=== PATIENT | male | born 1995 | race Caucasian/White ===

== ENCOUNTER 2019-07-20 22:04 | Inpatient (IN) | payer SELFPAY ==
[~2019-07-20] VITALS: Ht 170.1 cm; Wt 92.1 kg
[2019-07-20 22:07] VITALS: BP 144/84
[2019-07-20 22:33] LABS: BASO # 0.1 10*3/uL (0.0-0.1); BASO % 0.4 % (0.0-1.0); EOS # 0.2 10*3/uL (0.0-0.4); EOS % 1.2 % (1.0-4.0); HEMATOCRIT 46.3 % (42.0-52.0); HEMOGLOBIN 16.1 g/dl (14.0-18.0); LYMPH # 3.2 10*3/uL (1.3-4.4); LYMPH % 21.1 % (27.0-41.0); MEAN CELL VOLUME 89.6 fl (80.0-94.0); MEAN CORPUSCULAR HGB 31.1 pg (27.0-31.0); MEAN CORPUSCULAR HGB CONC 34.8 g/dl (33.0-37.0); MEAN PLATELET VOLUME 9.8 fl (9.6-12.3); MONO # 1.4 10*3/uL (0.1-1.0); MONO % 9.1 % (3.0-9.0); NEUT # 10.2 10*3/uL (2.3-7.9); PLATELET COUNT AUTOMATED 294 10*3/uL (130-400); RED BLOOD COUNT 5.17 10*6/uL (4.50-5.90); RED CELL DISTRI WIDTH 11.7 % (0-14.5)
[2019-07-20 22:49] LABS: ALBUMIN 4.1 gm/dl (3.1-4.5); ALKALINE PHOSPHATASE 103 U/L (45-117); BUN 12 mg/dl (7-24); CHLORIDE 105 mmol/L (98-107); CREATININE 1.05 mg/dL (0.70-1.30); POTASSIUM 3.6 mmol/L (3.5-5.1); SGOT/AST 27 IU/L (3-35); SGPT/ALT 33 U/L (12-78); SODIUM 138 mmol/L (136-145); TOTAL PROTEIN 7.7 gm/dL (6.4-8.2)
--- NOTE | 2019-07-20 23:02 | NUR ---
PRATIK AYALA AT BEDSIDE TO DISCUSS PLAN OF CARE WITH PT.PT DECLINES TO STAY.PT ADVISED BY PA OF ANY AND ALL RISKS OF LEAVING AGAINST MEDICAL ADVICE.PT VERBALIZED UNDERSTANDING.
[2019-07-20] MEDS ORDERED: SEPTDS PO (23:04)
[2019-07-20] MEDS ORDERED: CEPHALEXIN500 M1 PO (23:04)
--- NOTE | 2019-07-20 23:10 | NUR ---
PT GIRLFRIEND TO NURSES STATION,SPOKE WITH PRATIK AYALA,STATES PT IS WILLING TO BE ADMITTED.
--- NOTE | 2019-07-20 23:54 | NUR ---
PHOTO TAKEN OF LEFT ARM CELLULITIS.PER RESIDNET, AREA OF REDNESS OUTLINED WITH MARKER.
[2019-07-20 23:56] VITALS: BP 152/76
[2019-07-21 00:05] LABS: INTERNATIONAL NORM RATIO 0.9 (2.0-3.5)
[2019-07-21 02:00] VITALS: BP 154/92
[2019-07-21 06:25] LABS: BASO # 0.1 10*3/uL (0.0-0.1); BASO % 0.5 % (0.0-1.0); EOS # 0.2 10*3/uL (0.0-0.4); EOS % 1.4 % (1.0-4.0); HEMATOCRIT 43.5 % (42.0-52.0); HEMOGLOBIN 15.1 g/dl (14.0-18.0); LYMPH # 2.2 10*3/uL (1.3-4.4); LYMPH % 17.6 % (27.0-41.0); MEAN CELL VOLUME 90.2 fl (80.0-94.0); MEAN CORPUSCULAR HGB 31.3 pg (27.0-31.0); MEAN CORPUSCULAR HGB CONC 34.7 g/dl (33.0-37.0); MEAN PLATELET VOLUME 10.3 fl (9.6-12.3); MONO # 1.3 10*3/uL (0.1-1.0); MONO % 10.1 % (3.0-9.0); NEUT # 8.8 10*3/uL (2.3-7.9); NEUT % 70.1 % (47.0-73.0); PLATELET COUNT AUTOMATED 279 10*3/uL (130-400); RED BLOOD COUNT 4.82 10*6/uL (4.50-5.90); RED CELL DISTRI WIDTH 11.9 % (0-14.5); WHITE BLOOD COUNT 12.5 10*3/uL (4.8-10.8)
--- NOTE | 2019-07-21 06:41 | NUR ---
DR. CARLISLE NOTIFIED OF CONSULT. WILL SEE PATIENT THIS AM.PATIENT MAY ORDER BREAKFAST, BUT HOLD TRAY UNTIL HE SEES PATIENT.
[2019-07-21 07:06] LABS: ALBUMIN 3.3 gm/dl (3.1-4.5); ALKALINE PHOSPHATASE 95 U/L (45-117); BUN 12 mg/dl (7-24); CHLORIDE 109 mmol/L (98-107); CHOLESTEROL 145 mg/dL (<200); CREATININE 0.95 mg/dL (0.70-1.30); HDL CHOLESTEROL 28 mg/dl (40-60); LDL CHOLESTEROL 96 mg/dL (9-159); PHOSPHOROUS 3.6 mg/dL (2.5-4.9); POTASSIUM 3.6 mmol/L (3.5-5.1); SGOT/AST 23 IU/L (3-35); SGPT/ALT 32 U/L (12-78); SODIUM 140 mmol/L (136-145); TOTAL PROTEIN 6.6 gm/dL (6.4-8.2); TRIGLYCERIDES 107 mg/dl (<150); VLDL CHOLESTEROL 21 mg/dL (6-40)
[2019-07-21 08:00] VITALS: BP 105/64
[2019-07-21 12:00] VITALS: BP 130/83
--- NOTE | 2019-07-21 12:10 | NUR ---
Dr. Sow in and removed scab from abscess and small amount of pus came out from area.
--- NOTE | 2019-07-21 13:38 | NUR ---
K-pad applied as ordered. Instructed pt on usage.
[2019-07-21 16:00] VITALS: BP 124/72
--- NOTE | 2019-07-21 18:35 | NUR ---
Pt states while he was in shower that a lot of drainage came out of wound. States it was thick and brown and "cottage cheese like". IV site to RAN occluded. IV started right antecubital with #20 angiocath after 1 attempts. The IV site was prepped with Chloraprep. Heparin lock attached. IV solution NS infusing at 100 cc/hr. Sterile dressing applied. Patient tolerated precedure well. Procedure performed according to [facility] policy & procedure. SANKET MANZO
[2019-07-21 20:00] VITALS: BP 142/90
[2019-07-22] VITALS: BP 138/86
[2019-07-22 06:26] LABS: BASO # 0.1 10*3/uL (0.0-0.1); BASO % 0.8 % (0.0-1.0); EOS # 0.3 10*3/uL (0.0-0.4); EOS % 3.7 % (1.0-4.0); HEMATOCRIT 42.5 % (42.0-52.0); HEMOGLOBIN 14.7 g/dl (14.0-18.0); LYMPH # 2.5 10*3/uL (1.3-4.4); LYMPH % 26.7 % (27.0-41.0); MEAN CELL VOLUME 89.9 fl (80.0-94.0); MEAN CORPUSCULAR HGB 31.1 pg (27.0-31.0); MEAN CORPUSCULAR HGB CONC 34.6 g/dl (33.0-37.0); MEAN PLATELET VOLUME 10.2 fl (9.6-12.3); MONO # 0.9 10*3/uL (0.1-1.0); MONO % 9.8 % (3.0-9.0); NEUT # 5.5 10*3/uL (2.3-7.9); NEUT % 58.7 % (47.0-73.0); PLATELET COUNT AUTOMATED 274 10*3/uL (130-400); RED BLOOD COUNT 4.73 10*6/uL (4.50-5.90); RED CELL DISTRI WIDTH 11.7 % (0-14.5); WHITE BLOOD COUNT 9.3 10*3/uL (4.8-10.8)
[2019-07-22 06:59] LABS: ALBUMIN 3.2 gm/dl (3.1-4.5); ALKALINE PHOSPHATASE 95 U/L (45-117); BUN 9 mg/dl (7-24); CHLORIDE 110 mmol/L (98-107); CREATININE 0.88 mg/dL (0.70-1.30); POTASSIUM 3.8 mmol/L (3.5-5.1); SGOT/AST 16 IU/L (3-35); SGPT/ALT 31 U/L (12-78); SODIUM 142 mmol/L (136-145); TOTAL PROTEIN 6.4 gm/dL (6.4-8.2)
[2019-07-22 08:00] VITALS: BP 139/67
[2019-07-22 12:00] VITALS: BP 139/90
[2019-07-22] MEDS ORDERED: DOXYCYCLINE100 M3 PO (14:29)
--- NOTE | 2019-07-22 15:26 | NUR ---
PT REFUSED DISCHARGE PHOTOS AT THIS TIME.
--- NOTE | 2019-07-22 15:26 | NUR ---
Discharge instructions reviewed with patient/family. Patient receptive and verbalizes understanding. Follow-up care arranged. Written instructions given to patient/family. YOMI LO
== END 2019-07-22 15:26 | disposition home or self-care (01) | DRG 872 ==
LOC: ED 22:04 → EDHOLD 23:56 → 4E 07-21 00:14
PROVIDERS: Hospitalist; Physician Assistant; Student in an Organized Health Care Education/Training Program; ADMIT Internal Medicine
DX: A41.9 Sepsis, unspecified organism (principal); L03.114 Cellulitis of left upper limb; L02.414 Cutaneous abscess of left upper limb; E87.8 Other disorders of electrolyte and fluid balance, not elsewhere classified; E83.41 Hypermagnesemia; I10 Essential (primary) hypertension; I37.0 Nonrheumatic pulmonary valve stenosis; Z88.6 Allergy status to analgesic agent; Z90.49 Acquired absence of other specified parts of digestive tract; Z88.8 Allergy status to other drugs, medicaments and biological substances; Z91.040 Latex allergy status; Z82.49 Family history of ischemic heart disease and other diseases of the circulatory system; Z83.3 Family history of diabetes mellitus; Z80.0 Family history of malignant neoplasm of digestive organs; Z80.8 Family history of malignant neoplasm of other organs or systems; Z98.62 Peripheral vascular angioplasty status

== ENCOUNTER 2019-09-23 22:54 | Emergency (ER) | payer SELFPAY ==
[~2019-09-23] VITALS: Ht 170.1 cm; Wt 95.3 kg
[~2019-09-23 22:54] MED LIST: CEPHALEXIN500 M1 PO; DOXYCYCLINE100 M3 PO; SEPTDS PO
[2019-09-23] MEDS ORDERED: ELIMITE 5%60 GM T (23:30)
[2019-09-23] MEDS ORDERED: PREDNISONE20 M1 PO (23:34)
== END 2019-09-24 00:04 | disposition home or self-care (01) ==
LOC: ED 22:54
DX: B86 Scabies (principal); Z88.6 Allergy status to analgesic agent; Z91.040 Latex allergy status; Z88.8 Allergy status to other drugs, medicaments and biological substances; Z79.2 Long term (current) use of antibiotics

== ENCOUNTER 2019-10-20 23:59 | Inpatient (IN) | payer SELFPAY ==
[~2019-10-20] VITALS: Ht 172.7 cm; Wt 89.6 kg
[~2019-10-20 23:59] MED LIST changes: +ELIMITE 5%60 GM T; +PREDNISONE20 M1 PO
[2019-10-21 00:02] VITALS: BP 139/90
[2019-10-21 00:43] LABS: BASO # 0.1 10*3/uL (0.0-0.1); BASO % 0.5 % (0.0-1.0); EOS # 0.3 10*3/uL (0.0-0.4); EOS % 1.9 % (1.0-4.0); HEMATOCRIT 46.9 % (42.0-52.0); LYMPH # 2.9 10*3/uL (1.3-4.4); MEAN CELL VOLUME 91.6 fl (80.0-94.0); MEAN CORPUSCULAR HGB 31.3 pg (27.0-31.0); MEAN CORPUSCULAR HGB CONC 34.1 g/dl (33.0-37.0); MEAN PLATELET VOLUME 9.8 fl (9.6-12.3); MONO # 1.4 10*3/uL (0.1-1.0); MONO % 9.1 % (3.0-9.0); NEUT # 10.4 10*3/uL (2.3-7.9); NEUT % 69.2 % (47.0-73.0); PLATELET COUNT AUTOMATED 278 10*3/uL (130-400); RED BLOOD COUNT 5.12 10*6/uL (4.50-5.90); WHITE BLOOD COUNT 15.1 10*3/uL (4.8-10.8)
[2019-10-21 01:14] LABS: ALBUMIN 3.8 gm/dl (3.1-4.5); ALKALINE PHOSPHATASE 111 U/L (45-117); BUN 10 mg/dl (7-24); CHLORIDE 105 mmol/L (98-107); CREATININE 1.01 mg/dL (0.70-1.30); SGOT/AST 21 IU/L (3-35); SGPT/ALT 39 U/L (12-78); SODIUM 141 mmol/L (136-145); TOTAL PROTEIN 7.5 gm/dL (6.4-8.2)
[2019-10-21 02:40] VITALS: BP 138/68
--- NOTE | 2019-10-21 02:40 | NUR ---
The assessment has been completed. Time: 239 A 24 year old MALE admitted to under services of DHRUV GLEASON DO. Pt. arrived via ambulatory from ER. Chief complaint: INJURED LEFT LOWER LEG 2-3 DAYS AGO.. DIANNA ODONNELL
--- NOTE | 2019-10-21 03:27 | NUR ---
PT COMPLAINS OF 8/10 THROBBING PAIN. MEDICATED PER ORDER. WILL MONITOR FOR RELIEF. VOICES NO OTHER CONCERNS AT THIS TIME. RESTING IN BED. CALL LIGHT WITHIN REACH. BED ALARM ON.
--- NOTE | 2019-10-21 04:30 | NUR ---
PAIN MEDICATION EFFECTIVE. PT RESTING IN BED. NO S/S OF DISTRESS NOTED. CALL LIGHT WITHIN REACH.
--- NOTE | 2019-10-21 05:55 | NUR ---
PT COMPLAINS OF 6/10 THROBBING HEADACHE. MEDICATED PER ORDER. WILL MONITOR FOR RELIEF. VOICES NO OTHER CONCERNS AT THIS TIME. RESTING IN BED. CALL LIGHT WITHIN REACH.
[2019-10-21 06:43] LABS: HEMATOCRIT 43.5 % (42.0-52.0); HEMOGLOBIN 14.8 g/dl (14.0-18.0); MEAN CELL VOLUME 90.1 fl (80.0-94.0); MEAN CORPUSCULAR HGB 30.6 pg (27.0-31.0); MEAN PLATELET VOLUME 9.6 fl (9.6-12.3); PLATELET COUNT AUTOMATED 253 10*3/uL (130-400); RED BLOOD COUNT 4.83 10*6/uL (4.50-5.90); RED CELL DISTRI WIDTH 11.9 % (0-14.5); WHITE BLOOD COUNT 18.8 10*3/uL (4.8-10.8)
--- NOTE | 2019-10-21 06:43 | NUR ---
PT NOW STATING HE FEELS NAUSEOUS AND THAT HE VOMITIED ONE TIME IN TRASH CAN. PT GIVEN BRET EMANUEL AND ICE CHIPS AT THIS TIME. WILL CONTINUE TO MONITOR
[2019-10-21 07:03] LABS: ALBUMIN 3.2 gm/dl (3.1-4.5); BUN 10 mg/dl (7-24); CHLORIDE 111 mmol/L (98-107); CHOLESTEROL 129 mg/dL (<200); HDL CHOLESTEROL 29 mg/dl (40-60); POTASSIUM 3.4 mmol/L (3.5-5.1); SODIUM 143 mmol/L (136-145)
[2019-10-21 07:12] LABS: ALKALINE PHOSPHATASE 82 U/L (45-117); CREATININE 0.85 mg/dL (0.70-1.30); LDL CHOLESTEROL 85 mg/dL (9-159); PHOSPHOROUS 2.1 mg/dL (2.5-4.9); SGOT/AST 18 IU/L (3-35); SGPT/ALT 30 U/L (12-78); THYROID STIM HORMONE (HS) 0.694 uIU/ml (0.358-4.75); TOTAL PROTEIN 6.2 gm/dL (6.4-8.2); TRIGLYCERIDES 75 mg/dl (<150); VLDL CHOLESTEROL 15 mg/dL (6-40)
[2019-10-21 07:34] LABS: PLATELET SUFFICIENCY NORMAL (NORMAL); TOTAL CELLS COUNTED 100 #CELLS
[2019-10-21 08:00] VITALS: BP 110/70
[2019-10-21 08:17] LABS: VITAMIN D, 25-HYDROXY 19.6 ng/mL (30-100)
[2019-10-21 12:00] VITALS: BP 109/57
[2019-10-21 16:00] VITALS: BP 135/75
[2019-10-21 20:00] VITALS: BP 133/81
--- NOTE | 2019-10-21 20:56 | NUR ---
PT STATES THAT HE HAS A HEADACHE RATING IT A 6/10 AND IS REQUESTING MEDICATIONS FOR IT. PRBN TYLENOL PO IS GIVEN AT THIS TIME. WILL CONTINUE TO MONITOR THE PATIENT.
--- NOTE | 2019-10-21 21:48 | NUR ---
RE-EVALUATED THE PATIENT AT THIS TIME AND HE IS SLEEPING. WILL CONTINUE TO MONITOR THE PATIENT.
[2019-10-22] VITALS: BP 131/75
--- NOTE | 2019-10-22 02:49 | NUR ---
24 HR chart check completed.
--- NOTE | 2019-10-22 05:00 | NUR ---
Patient sleeping. Respirations relaxed and easy. Siderails up . [place] on. JG CASTRO
--- NOTE | 2019-10-22 06:26 | NUR ---
YUE ARAIZA [id number] Please refer to the physician's history and physical for past medical history, comorbid conditions, and allergies. Diagnosis: CELLULITIS OF LEFT LEG, SEPSIS Roly Score: 23,LOW OR NO RISK WOUND DESCRIPTIONS: Wound Number: 1 Location of the wound: left anterior lower leg Thickness: Full Size: 0.2cm x 0.2cm x <0.1cm Tunneling: none Undermining: none Sinus Tract: none Presence of Exudate: none Amount: None Color: Brown, yellow Odor: None Periwound Skin Appearance: Erythema 3.0cm x 3.5cm x <0.1cm Wound edges: approximated Pain (associated with wound): none at time of assessment pt stated it did have pain until the antibiotic kicked in How does patient state this happened? pt stated this started 4 days ago after he hit it on wood going down the stairs. he states he will care for this area at home when he is discharged. Surface the patient is resting on: Isoflex SKIN PREVENTION RECOMMENDATION: 1. Pressure redistribution support surface as appropriate 2. Elevate heels 3. Remove boots/TEDS every shift and reapply 4. Head of bed 30 degrees as tolerated 5. Assess nutrition and hydration 6. Manage moisture 7. Avoid the use of containment devices while in bed 8. Use absorptive products on surfaces limit layers of linens on bed 9. Turn and reposition every 1-2 hours in bed and every 1 hour in chair as tolerated 10. Weight shifts every 15 minutes while up in chair 11. Offloading with pillows or device to keep heels elevated off bed 12. Monitor skin at least every shift 13. Inspect under medical devices twice a day WOUND TREATMENT RECOMMENDATIONS: Full thickness guidelines: Cleanse left anterior lower extremity with nss and apply sureprep around the wound therahoney to wound bed and cover with optifoam gentle.
[2019-10-22 08:00] VITALS: BP 141/79
--- NOTE | 2019-10-22 10:27 | NUR ---
ASSESSMENT COMPLETE ON PT AT THIS TIME.PT RESTING IN BED, EYES OPEN; ALERT ORIENTED AND PLEASANT MOOD. PT STATES THAT WHILE HE WAS SHOWERING THIS MORNING, WOUND TO RLE OPENED UP AND HE NOTED YELLOW PURULENT DRAINAGE. PT STATES THAT HIS LEG FEELS MUCH BETTER AFTER TAKING HIS SHOWER. RESPIRATIONS ARE EASY AND UNLABORED ON ROOM AIRE. AM MEDICATIONS ARE GIVEN AT THIS TIME. NO COMPLAINTS ARE VOICED. IV SITE IS PATENT, FLUSHING WITH EASE AND GIVING GOOD BLOOD RETURN. WILL MONITOR. CALL LIGHT IN REACH.
[2019-10-22 12:00] VITALS: BP 134/80
--- NOTE | 2019-10-22 14:44 | NUR ---
PT GIVEN TYLENOL 650 MG PO FOR C/O HEADACHE. WILL MONITOR FOR EFFECTIVENESS. CALL LIGHT IN REACH.
[2019-10-22 16:00] VITALS: BP 135/70
--- NOTE | 2019-10-22 16:30 | NUR ---
[employer] in to talk to patient. Patient states lives at HOME with GIRLFRIEND AND HER PARENTS. There are FEW steps in the home. Physician: NONE Pharmacy: [facility] Home health services: NONE Patient's level of ADLs: INDEPENDENT Patient has working utilities: YES DME: NONE Follow-up physician's appointment after d/c: WILL BE MADE BY HOSPITALIST NURSE DIRECTOR ON DISCHARGE Does patient want to access PORTAL?: NO Discharge plan PT LIVES AT HOME WITH HIS GIRLFRIEND AND HER PARENTS. DENIES HE WILL HAVE NEEDS ON DISCHARGE AND WILL RETURN TO GIRLFRIENDS [place] ON DISCHARGE.. WHEN MEDICALLY STABLE. WILL CONTINUE TO FOLLOW. STATES HE WILL HAVE A RIDE HOME ON DISCHARGE. KESHAWN KESSLER
[2019-10-22 20:00] VITALS: BP 129/76
[2019-10-23] VITALS: BP 127/68
[2019-10-23 08:00] VITALS: BP 119/66
--- NOTE | 2019-10-23 08:00 | NUR ---
ASSESSMENT COMPLETE ON PT AT THIS TIME. NO S/S OF DISTRESS. RESPRIATIONS UNLABORED ON ROOM AIR. IV SITE PATENT, FLUSHING AND GIVING GOOD BLOOD RETURN. WILL CONTINUE TO MONITOR. CALL LIGHT IN REACH.
[2019-10-23 09:09] LABS: BASO # 0.1 10*3/uL (0.0-0.1); BASO % 0.5 % (0.0-1.0); EOS # 0.5 10*3/uL (0.0-0.4); EOS % 5.7 % (1.0-4.0); HEMATOCRIT 45.9 % (42.0-52.0); HEMOGLOBIN 15.6 g/dl (14.0-18.0); LYMPH # 1.7 10*3/uL (1.3-4.4); MEAN CELL VOLUME 91.1 fl (80.0-94.0); MEAN PLATELET VOLUME 9.5 fl (9.6-12.3); MONO # 0.9 10*3/uL (0.1-1.0); MONO % 10.1 % (3.0-9.0); NEUT # 5.9 10*3/uL (2.3-7.9); NEUT % 64.4 % (47.0-73.0); PLATELET COUNT AUTOMATED 312 10*3/uL (130-400); RED BLOOD COUNT 5.04 10*6/uL (4.50-5.90); RED CELL DISTRI WIDTH 12.1 % (0-14.5); WHITE BLOOD COUNT 9.2 10*3/uL (4.8-10.8)
[2019-10-23 09:23] LABS: BUN 9 mg/dl (7-24); CHLORIDE 108 mmol/L (98-107); CREATININE 0.88 mg/dL (0.70-1.30); POTASSIUM 3.7 mmol/L (3.5-5.1); SODIUM 142 mmol/L (136-145)
[2019-10-23] MEDS ORDERED: VITAMIN D32000 UNI1 PO (13:12)
[2019-10-23] MEDS ORDERED: SEPTDS PO (13:12)
--- NOTE | 2019-10-23 15:00 | NUR ---
Discharge instructions reviewed with patient/family. Patient receptive and verbalizes understanding. Follow-up care arranged. Written instructions given to patient/family. LATIA SEN
== END 2019-10-23 15:00 | disposition home or self-care (01) | DRG 872 ==
LOC: ED 23:59 → 5E 10-21 01:37 → EDHOLD 10-21 01:37 → 4E 10-21 01:37 → 5E 10-21 16:27
PROVIDERS: Internal Medicine; Physician Assistant; Student in an Organized Health Care Education/Training Program; ADMIT Family Medicine
DX: A41.9 Sepsis, unspecified organism (principal); L03.116 Cellulitis of left lower limb; R73.9 Hyperglycemia, unspecified; I10 Essential (primary) hypertension; D72.821 Monocytosis (symptomatic); E66.09 Other obesity due to excess calories; Z88.8 Allergy status to other drugs, medicaments and biological substances; Z88.6 Allergy status to analgesic agent; Z91.040 Latex allergy status; Z90.49 Acquired absence of other specified parts of digestive tract; Z82.49 Family history of ischemic heart disease and other diseases of the circulatory system; Z80.3 Family history of malignant neoplasm of breast; Z83.3 Family history of diabetes mellitus; Z80.0 Family history of malignant neoplasm of digestive organs; Z68.30 Body mass index [BMI] 30.0-30.9, adult

== ENCOUNTER 2019-11-22 19:47 | Emergency (ER) | payer SELFPAY ==
[~2019-11-22] VITALS: Ht 170.1 cm; Wt 86.2 kg
[~2019-11-22 19:47] MED LIST changes: +VITAMIN D32000 UNI1 PO
[2019-11-22 20:27] LABS: BASO % 0.4 % (0.0-1.0); EOS # 0.3 10*3/uL (0.0-0.4); HEMOGLOBIN 16.5 g/dl (14.0-18.0); LYMPH # 1.5 10*3/uL (1.3-4.4); LYMPH % 29.6 % (27.0-41.0); MEAN CELL VOLUME 91.6 fl (80.0-94.0); MEAN CORPUSCULAR HGB 30.8 pg (27.0-31.0); MEAN CORPUSCULAR HGB CONC 33.7 g/dl (33.0-37.0); MEAN PLATELET VOLUME 9.7 fl (9.6-12.3); MONO # 0.7 10*3/uL (0.1-1.0); MONO % 13.6 % (3.0-9.0); NEUT # 2.7 10*3/uL (2.3-7.9); NEUT % 51.2 % (47.0-73.0); PLATELET COUNT AUTOMATED 198 10*3/uL (130-400); RED BLOOD COUNT 5.35 10*6/uL (4.50-5.90); RED CELL DISTRI WIDTH 12.3 % (0-14.5); WHITE BLOOD COUNT 5.2 10*3/uL (4.8-10.8)
[2019-11-22 20:38] LABS: ACT PARTIAL THROMBO TIME 25.9 SECONDS (20.0-32.1); INTERNATIONAL NORM RATIO 0.9 (2.0-3.5)
[2019-11-22 20:42] LABS: ALBUMIN 3.9 gm/dl (3.1-4.5); ALKALINE PHOSPHATASE 92 U/L (45-117); BUN 11 mg/dl (7-24); CHLORIDE 108 mmol/L (98-107); CREATININE 0.99 mg/dL (0.70-1.30); SGOT/AST 32 IU/L (3-35); SGPT/ALT 51 U/L (12-78); SODIUM 142 mmol/L (136-145); TOTAL PROTEIN 7.3 gm/dL (6.4-8.2)
[2019-11-22 20:43] LABS: TROPONIN I < 0.015 ng/ml (<0.045)
== END 2019-11-23 00:33 | disposition home or self-care (01) ==
LOC: ED 19:47
PROVIDERS: Emergency Medicine
DX: R07.89 Other chest pain (principal); I10 Essential (primary) hypertension; Z91.040 Latex allergy status; Z88.6 Allergy status to analgesic agent; Z79.899 Other long term (current) drug therapy; Z90.49 Acquired absence of other specified parts of digestive tract

== ENCOUNTER 2020-01-13 13:10 | Emergency (ER) | payer SELFPAY ==
[~2020-01-13] VITALS: Ht 170.1 cm; Wt 83.9 kg
== END 2020-01-13 14:59 | disposition home or self-care (01) ==
LOC: ED 13:10
DX: J02.8 Acute pharyngitis due to other specified organisms (principal); I10 Essential (primary) hypertension; E66.9 Obesity, unspecified; Z91.040 Latex allergy status; Z88.6 Allergy status to analgesic agent

== ENCOUNTER 2020-01-30 08:21 | Emergency (ER) | payer SELFPAY ==
[~2020-01-30] VITALS: Ht 170.1 cm; Wt 83.9 kg
[2020-01-30] MEDS ORDERED: TESSALON PERLE100 M1 PO (10:35)
== END 2020-01-30 10:43 | disposition home or self-care (01) ==
LOC: ED 08:21
DX: J40 Bronchitis, not specified as acute or chronic (principal); Z88.8 Allergy status to other drugs, medicaments and biological substances; Z88.5 Allergy status to narcotic agent; Z91.040 Latex allergy status; Z90.49 Acquired absence of other specified parts of digestive tract

== ENCOUNTER → 2020-03-15 | Outpatient (CLI) | payer SELFPAY ==
[~2020-03-15] MED LIST changes: +TESSALON PERLE100 M1 PO
== END | disposition home or self-care (01) ==
LOC: COVID19 12:04
DX: B34.9 Viral infection, unspecified (principal); Z20.828 Contact with and (suspected) exposure to other viral communicable diseases